=== PATIENT | male | born 1970 | race Caucasian/White ===

== ENCOUNTER 2022-03-18 17:24 | Inpatient (IN) | payer MEDICARE ==
[~2022-03-18] VITALS: Ht 178 cm; Wt 103.6 kg
[2022-03-18 18:08] LABS: PCO2 Arterial 46.5 mmHg (35-45); PO2 Arterial 60.2 mmHg (80-100); pH Blood Arterial 7.11 (7.35-7.45)
[2022-03-18 18:17] LABS: BASOPHILS ABSOLUTE AUTO 0.08 K/mm3 (0.00-0.23); BASOPHILS PERCENT AUTO 0 % (0-2); EOSINOPHILS ABSOLUTE AUTO 0.11 K/mm3 (0.00-0.68); EOSINOPHILS PERCENT AUTO 1 % (0-6); Hematocrit 47.6 % (37.0-53.0); Hemoglobin 15.1 g/dL (13.5-17.5); IMMATURE GRAN ABSOLUTE AUTO 0.37 K/mm3 (0.00-0.10); IMMATURE GRAN PERCENT AUTO 2 % (0-1); LYMPHOCYTES ABSOLUTE AUTO 2.81 K/mm3 (0.84-5.20); LYMPHOCYTES PERCENT AUTO 15 % (21-46); MONOCYTES ABSOLUTE AUTO 0.99 K/mm3 (0.16-1.47); MONOCYTES PERCENT AUTO 5 % (4-13); Mean Corpuscular HGB 30.3 pg (26.0-34.0); Mean Corpuscular HGB Conc 31.7 g/dL (31.5-36.5); Mean Corpuscular Volume 95 fL (80-100); Mean Platelet Volume 11.8 fL (9.1-12.4); NEUTROPHILS ABSOLUTE AUTO 14.24 K/mm3 (1.96-9.15); NEUTROPHILS PERCENT AUTO 77 % (41-73); NRBC ABSOLUTE 0.02 K/mm3 (0.00-0.02); NRBC Auto 0.1 /100 WBC (0.0-0.2); Platelet Count 209 K/mm3 (150-400); RDW Coefficient Variation 12.8 % (11.7-14.2); RDW Standard Deviation 44.1 fL (35.1-46.3); Red Blood Cell Count 4.99 M/mm3 (4.30-5.90)
[2022-03-18 18:33] LABS: International Normalized Ratio 1.22; Magnesium, Blood 2.6 mg/dL (1.6-2.4); Prothrombin Time Results 12.6 Sec (9.7-11.5)
[2022-03-18 18:47] LABS: Albumin, Blood 2.4 g/dL (3.4-5.0); Albumin/Globulin Ratio 0.8 (0.8-1.8); Bilirubin, Total 0.9 mg/dL (0.1-1.0); Bun/Creatinine Ratio 15.6 (12.0-20.0); Calcium, Blood 9.2 mg/dL (8.5-10.1); Creatinine, Blood 1.09 mg/dL (0.60-1.20); Phosphorus, Blood 4.8 mg/dL (2.5-4.9); Potassium, Blood 4.2 mmol/L (3.5-5.5); Total Protein, Blood 5.4 g/dL (6.4-8.2)
--- NOTE | 2022-03-18 19:11 | NUR ---
pt coded upon arrival to icu. exteded cpr also coded in ER at other hospital. notified his significant other and his son of his dire situation. We had return of circultion. will follow with family to update them. Gently tried to prepare them for possibly not surviving this event. 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 He also stated two year ago he was in the hospital for congestive heart failure. pt pps socre is 20%.
--- NOTE | 2022-03-18 19:15 | NUR ---
ASSUMED CARE OF PT @1900. PT INTUBATED AC VC 22/500/12/100%. DR SMITH, DR MANNING, AND RT BEDSIDE. BARNEY 300MCG/MIN, DOPAMINE 10MCG/KG/MIN, EPI 20MCG/MIN, SODIUM BICARB BOLUS, NACL 200MLS/HR. CL RIJ, IV 18GA RAC, IV 20GA RFA, IO R TIBIA. TEMP TURCIOS DRAINING TO GRAVITY.
--- NOTE | 2022-03-18 19:26 | NUR ---
Summary. Pt arrived to ICU at approximately 1730, during transfer from [facility] team pt lost pulses. Code blue called at approximately 1734. Code summary as follows: 1734 code called, cpr started, 1mg EPI 1737 rhythm check, no pulse, PEA 1738 2 AMPs Bicarb 1739 1mg EPI, calcium chloride 1740 rhythm check, no pulse, Vtach, two shock 1741 1 mg EPI 1742 300 mg Amiodarone 1743 rhythm check, PEA 1744 1 mg EPI 1745 1 AMP Bicarb 1746 rhythm check, PEA 1747 1 mg EPI 1748 rhythm check, ROSC, sinus rhythm in the 80s Post code summary: Epi drip started at 5 mcg/min titrated per Dr. Toney to maintain MAP >65 Dopamine drip started at 2.5 mcg/kg/min, titrated per Dr. Toney to maintain MAP >65 At approximately 1840, pt BP dropped and pt became bradycardic with rate dropping into 30s. 1 mg EPI and 2 AMPs bicarb given with good results. Neosynephrine started at 100 mcg/min at 1850, titrated to maintain BP per Dr. Toney. Dr Rubio at bedside, time study technician at bedside. Report given to oncroderick RN.
[2022-03-18 19:49] LABS: PCO2 Arterial 50.3 mmHg (35-45); PO2 Arterial 84.8 mmHg (80-100)
[2022-03-18 19:50] LABS: pH Blood Arterial 7.25 (7.35-7.45)
[2022-03-18 21:26] LABS: PCO2 Arterial 47.2 mmHg (35-45); PO2 Arterial 60.1 mmHg (80-100)
[2022-03-18 21:27] LABS: pH Blood Arterial 7.26 (7.35-7.45)
--- NOTE | 2022-03-18 21:35 | NUR ---
UPDATE CALLED DR SMITH REGARDING SPO2 READING HIGH 70'S AND LOW 80'S. RT DISCUSSED WITH LUIS ABOUT VENT SETTINGS. EVENTALLY ORDERS PROVIDED TO PARALIZE AND SEDATE PATIENT FOR VENT COMPLIENCE. SEE EMAR FOR ORDERS.
[2022-03-18 22:07] LABS: Albumin/Globulin Ratio 0.8 (0.8-1.8); Bilirubin, Total 1.2 mg/dL (0.1-1.0); Bun/Creatinine Ratio 19.3 (12.0-20.0); Creatinine, Blood 0.93 mg/dL (0.60-1.20); Globulin, Blood 2.5 g/dL (2.2-4.0); Potassium, Blood 2.5 mmol/L (3.5-5.5); Total Protein, Blood 4.5 g/dL (6.4-8.2)
[2022-03-18 22:12] LABS: U Amphetamine Screen DETECTED; U Barbituate Screen Not Detected; U Benzodiazapine Screen Not Detected; U Buprenorphine Screen Not Detected; U Cannabinoids Screen Not Detected; U Cocaine Screen Not Detected; U Methadone Screen Not Detected; U Methamphetamine Screen DETECTED; U Opiates Screen Not Detected; U Oxycodone Screen Not Detected; U Phencyclidine Screen Not Detected; U Propoxyphene Screen Not Detected
[2022-03-19 00:16] LABS: Influenza A, PCR NEGATIVE (NEGATIVE); Influenza B, PCR NEGATIVE (NEGATIVE); Resp Syncytial Virus, PCR NEGATIVE (NEGATIVE); SARS-Cov-2 (COVID-19) PCR, MMC NEGATIVE (NEGATIVE)
[2022-03-19 00:20] LABS: PCO2 Arterial 37.2 mmHg (35-45); PO2 Arterial 86.8 mmHg (80-100); pH Blood Arterial 7.34 (7.35-7.45)
--- NOTE | 2022-03-19 00:45 | NUR ---
UPDATE AFTER MOST RECENT ABG, OXYGENATION HAS IMPROVED AND SPO2 REFLECTS THIS. MARTHA AND VERSED NOW ON SB.
[2022-03-19 01:46] LABS: Glucose, Blood 1065 mg/dL (70-99)
[2022-03-19 02:01] LABS: Glucose, Blood 976 mg/dL (70-99)
[2022-03-19 02:01] LABS: Glucose, Blood 946 mg/dL (70-99)
--- NOTE | 2022-03-19 02:21 | NUR ---
UPDATE ATTEMPTED TO CALL DR SMITH SEVERAL TIMES REGARDING LAB RESULTS. CALLS MADE AT 2256, 2320, 2354, 0127. DR SMITH RETURNED CALLS AT 0218 WITH NEW ORDERS FOR BLOOD CULTURES AND AGREES WITH POTASSIUM REPLACEMENT BELOW. CALL MADE TO DR MANNING AT 225 REGARDING POTASSIUM AT 2.4, HE ORDERED ELETROLYTE PROTOCOL TO REPLACE POTASSIUM.
[2022-03-19 02:37] LABS: Glucose, Blood 920 mg/dL (70-99)
--- NOTE | 2022-03-19 03:00 | NUR ---
UPDATE PT TAKEN TO CT WITH RT, FOUR RN'S, AND A PCT. NO ACUTE EVENTS FOR THIS INTERATION.
[2022-03-19 03:55] LABS: PCO2 Arterial 37.3 mmHg (35-45); PO2 Arterial 138 mmHg (80-100); pH Blood Arterial 7.36 (7.35-7.45)
[2022-03-19 04:01] LABS: BASOPHILS ABSOLUTE AUTO 0.01 K/mm3 (0.00-0.23); BASOPHILS PERCENT AUTO 0 % (0-2); EOSINOPHILS ABSOLUTE AUTO 0.01 K/mm3 (0.00-0.68); EOSINOPHILS PERCENT AUTO 0 % (0-6); Hematocrit 39.6 % (37.0-53.0); Hemoglobin 13.5 g/dL (13.5-17.5); IMMATURE GRAN ABSOLUTE AUTO 0.05 K/mm3 (0.00-0.10); IMMATURE GRAN PERCENT AUTO 0 % (0-1); LYMPHOCYTES ABSOLUTE AUTO 0.64 K/mm3 (0.84-5.20); LYMPHOCYTES PERCENT AUTO 5 % (21-46); MONOCYTES ABSOLUTE AUTO 0.47 K/mm3 (0.16-1.47); MONOCYTES PERCENT AUTO 3 % (4-13); Mean Corpuscular HGB 30.1 pg (26.0-34.0); Mean Corpuscular HGB Conc 34.1 g/dL (31.5-36.5); Mean Platelet Volume 11.1 fL (9.1-12.4); NEUTROPHILS PERCENT AUTO 92 % (41-73); Platelet Count 171 K/mm3 (150-400); RDW Coefficient Variation 12.5 % (11.7-14.2); RDW Standard Deviation 40.6 fL (35.1-46.3); Red Blood Cell Count 4.48 M/mm3 (4.30-5.90); White Blood Cell Count 14.38 K/mm3 (4.00-11.30)
[2022-03-19 04:31] LABS: Albumin, Blood 1.8 g/dL (3.4-5.0); Albumin/Globulin Ratio 0.7 (0.8-1.8); Bilirubin, Total 0.9 mg/dL (0.1-1.0); Calcium, Blood 6.8 mg/dL (8.5-10.1); Creatinine, Blood 0.82 mg/dL (0.60-1.20); Globulin, Blood 2.7 g/dL (2.2-4.0); Potassium, Blood 2.7 mmol/L (3.5-5.5); Total Protein, Blood 4.5 g/dL (6.4-8.2)
[2022-03-19 04:38] LABS: Source, Urine Foley catheter
[2022-03-19 04:40] LABS: Bilirubin, Urine Neg (Neg); Blood, Urine 5+ (Neg); Glucose Qualitative, Urine 4+ (Neg); Ketones, Urine Neg (Neg); Leukocyte Esterase, Urine 1+ (Neg); Nitrite, Urine Neg (Neg); Protein, Urine Neg (Neg); Specific Gravity, Urine 1.005 (1.003-1.022); Urobilinogen, Urine NORM (Normal)
[2022-03-19 04:54] LABS: Appearance, Urine Hazy (Clear); Color, Urine Orange (P-Yellow)
[2022-03-19 04:56] LABS: Bacteria Mod /hpf; Red Blood Cells, Urine 25-50 /hpf (0-2); Squamous Epithelial Cells Rare /hpf (Few)
[2022-03-19 05:16] LABS: Mean Corpuscular Volume 88 fL (80-100)
[2022-03-19 06:01] LABS: Glucose, Blood 761 mg/dL (70-99)
--- NOTE | 2022-03-19 06:08 | NUR ---
SUMMARY: NEURO/PSYCH/MOBILITY: ON INITIAL ASSESSMENT PT HAD SPONTANEOUS EYE OPENING W/UPWARD GAZE. PUPILS FIXED AND DILATED. INTERNAL ROTATION OF UPPER EXTREMETIES W/STIMULI. PT WAS SEDATED W/MIDAZOLAM AND PARALYZED W/ROCURONIUM BRIEFLY DUE TO POOR SPO2 SATS AND VENTILATOR COMPLIANCE. PT DOES NOT WITHDRAW FROM NOXIOUS STIMULI AND DOES NOT HAVE ANY PURPOSFUL MOVEMENT. NO GAG, COUGH, SWALLOW, OR GRIMACE W/SUCTIONING AND ORAL CARE. TEMP INCREASED FROM 92.0 TO 94.6. PT'S PUPILS FIXED, DILATED, AND UNEQUAL. RESP: LUNG CUADRA CLEAR AND DIMINISHED THROUGHOUT. VENT SETTINGS AT END OF SHIFT: AC VC 22/500/14/80%. RR 22, SPO2 >92%. CARDIAC: BP/MAP SOFT THROUGHOUT SHIFT. ARTERIAL LINE IN R FEMORAL ARTERY, TITRATIONS TO KEEP MAP >65. BARNEY 300MCG/MIN, DOPAMINE 20MCG/KG/MIN, EPI 20MCG/MIN, DOBUTAMINE 20MCG/KG/MIN. HR 90-110'S. HEPARIN 15U/KG/HR, NACL 300MLS/HR. GI: OG TUBE IN PLACE AND CLAMPED. NO BM THIS SHIFT. ABDOMEN SOFT W/HYPOACTIVE BOWEL TONES. : TEMP TURCIOS IN PLACE. TURCIOS PT ARRIVED TO FACILITY WITH CHANGED OUT AND URINALYSIS SENT. DRAINING CLEAR YELLOW URINE TO GRAVITY. SOME SEDIMENT NOTED. SKIN: ASSESSMENT REMAINS UNCHANGED. IV ACCESS: CL RIJ PATENT AND INFUSING, 18G RAC PATENT AND INFUSING, 20 RFA PATENT AND INFUSING, 20GA LFA PATENT W/SALINE LOCK. INSULIN INFUSING @15U/HR
--- NOTE | 2022-03-19 06:10 | NUR ---
UPDATE CALLED DR TAVERAS REGARDING PE STUDY RESULTS. CALLED DR SMITH AT 0559 REGARDING IONIZED CA AND THAT RADIOLOGY HAS BEEN ATTEMPTING TO CALL HIM BUT HE HAS NOT ANSWERED. HE DID NOT ANSWER FOR THIS CALL EITHER. WILL ATTEMPT AGAIN SOON.
--- NOTE | 2022-03-19 06:35 | NUR ---
UPDATE CALLED DR SMITH AT 06[address] RESULTS READ TO HIM. INFORMED HIM REGARDING THIS AM IONIZED CA LAB. NEW ORDERS PROVIDED FOR ALBUMIN AND CALCIUM GLUCONATE.
[2022-03-19 07:27] LABS: Glucose, Blood 769 mg/dL (70-99)
--- NOTE | 2022-03-19 08:04 | NUR ---
ASSUMED CARE OF PT THIS AM PT REMAINS ON NO SEDATION AND UNRESPONSIVE AT THIS TIME. OCCASIONALLY WILL SPONT OPEN EYES HOWEVER FIXED AND UNEQUAL PUPILS. SCLERAL EDEMA AND FACIAL TREMOR NOTED. PT TEMP 95.2 THIS AM VIA CORE TEMP, WARM BLANKETS APPLIED. PT. DOES NOT RESPOND TO NOXIOUS STIMULI,NO COUGH OR GAG DURING THIS ASSESSMENT. PT. CURRENT VENT SETTINGS OF ACVC 22,TV 500, FIO2 65%, PEEP 14. PT RR CURRENTLY 22. PT. HR 90S. DOBUTAMIN, DOPAMINE, NEOSYNEPHRINE, AND EPI GTT INFUSING SEE FLOWSHEET. PT. HAS HEPARIN AND INSULIN GTT INFUSING WELL. PT. HAS OG CLAMPED, TURCIOS TEMP DRAING YELLOW URINE. ARTLINE AND CENTRAL ACCESS IN PLACE.
[2022-03-19 09:14] LABS: Glucose, Blood 669 mg/dL (70-99)
--- NOTE | 2022-03-19 10:02 | NUR ---
DR HODGES AT BEDSIDE TO EXAMINE PT AND UPDATE FAMILY. LEVOPHED GTT INITIATED AND DOPAMINE GTT TITRATED DOWN PER DR. PALACIOS.
--- NOTE | 2022-03-19 10:24 | NUR ---
Spiritual care visit conducted. Patient is lying in bed and minimally responsive. Family is bedside. 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 I provide therapeutic listening, life review opportunities and gentle assessment counselor. Family respond well and showed signs of being comforted. I will continue to remain available to family.
[2022-03-19 10:42] LABS: Glucose, Blood 623 mg/dL (70-99)
--- NOTE | 2022-03-19 11:12 | NUR ---
UPDATE PT. TEMP INCREASING SLOWLY, NOW UP TO 96.8. FAN PLACED AT BEDSIDE FOR GOAL TEMP OF 96.8 AT THIS TIME PER DR[address] HODGES. PT EYE OPENING AND FACIAL TREMOR BECOMING MORE FREQUENT AND SEVERE. EYES REMAIN FIXED AND NON RESPONSIVE. CONTINUES TO HAVE NO COUGH OR GAG. 4MG ATIVN GIVEN FOR INCREASED TREMOR ACTIVITY. PROPOFOL GTT ORDERED.
--- NOTE | 2022-03-19 11:25 | NUR ---
PT HR INCREASING, QRS NOTED TO BE WIDENING SEE EKG MEASURMENTS. 2GM MAG PUSH NOW PER DR. HODGES. PROPFOL GTT STARTED AT 25MCG/KG/MIN. PT TEMP CONTINUES TO INCREASE, ICE PACKS PLACED TO PT CORE.
[2022-03-19 11:59] LABS: PCO2 Arterial 36.9 mmHg (35-45); PO2 Arterial 66.9 mmHg (80-100); pH Blood Arterial 7.39 (7.35-7.45)
[2022-03-19 12:25] LABS: Bun/Creatinine Ratio 16.3 (12.0-20.0); Calcium, Blood 7.2 mg/dL (8.5-10.1); Creatinine, Blood 0.86 mg/dL (0.60-1.20); Magnesium, Blood 2.4 mg/dL (1.6-2.4); Potassium, Blood 3.9 mmol/L (3.5-5.5)
--- NOTE | 2022-03-19 17:56 | NUR ---
SHIFT SUMMMARY PT. REMAINS UNRESPONSIVE AND INTUBATED. PT DID GET STARTED ON PROPOFOL THIS SHIFT DUE TO INCREASED TREMORS AND EYE OPENING. PT. REMAINS ON MULTIPLE VASOPRESSORS, EPINEPHRINE, NEOSYNEPHRINE, LEVOPHED, AND DOBUTAMINE. TITRATED FOR MAP >65. PER DR. HODGES TITRATE NEOSYNEPHRINE DOWN FIRST IF PT WILL TOLERATE. ART LINE REMAINS IN PLACE TO RIGHT GROIN WITH SAFESET. INSULIN GTT INFUSING. PT. HEPARIN CONTINUES INFUSING WELL. PT FAMILY AT BEDSIDE T/O DAY. UPDATED FREQUENTLY T/O THE DAY. ORDER FOR REPEAT HEAD CT TOMORROW. ALL NEEDS MET AT THIS TIME. REPORT TO ONCOMING NURSE.
--- NOTE | 2022-03-19 20:56 | NUR ---
ASSUMED CARE AT 1900 PATIENT IS INTUBATED AND SEDATED ON PROPOFOL. RIGHT PUPIL SLIGHTLY LARGER THAN LEFT, NO RESPONSE. EXTREMITIES FLACCID. 02 SATS 99% ON VENT AC VC 22/500/10/60%, RR 22, NO SECRETIONS FROM ETT. NO GAG WHEN SUCTIONED. LS CLEAR TO DIMINISHED. BREATHING PATTERN IRREGULAR. HR SR 90-100, ART LINE IN PLACE, SITE WNL, MAINTAIN BP >65. LEVO 14 MCG/MIN, EPI 12 MCG/MIN, DOBUTAMINE 20 MCG/KG/MIN, BARNEY 100 MCG/MIN. PULSES PALPABLE IN ALL EXTREMITIES. NAIL BEDS PALE. TEMP TURCIOS PATENT AND DRAINING CLEAR YELLOW, SOME SEDIMENT IN TUBING. TEMP CURRENTLY 96.4. OG CLAMPED. ORAL CARE DONE AND PATIENT REPOSITIONED. FAMILY AT BEDSIDE. SEE SHIFT ASSESSMENT FOR MORE INFORMATION.
[2022-03-20 03:28] LABS: Hematocrit 34.1 % (37.0-53.0); Mean Corpuscular HGB 30.5 pg (26.0-34.0); Mean Corpuscular HGB Conc 35.2 g/dL (31.5-36.5); Mean Corpuscular Volume 87 fL (80-100); Mean Platelet Volume 11.6 fL (9.1-12.4); Platelet Count 165 K/mm3 (150-400); RDW Coefficient Variation 13.1 % (11.7-14.2); RDW Standard Deviation 40.5 fL (35.1-46.3); Red Blood Cell Count 3.94 M/mm3 (4.30-5.90); White Blood Cell Count 15.25 K/mm3 (4.00-11.30)
[2022-03-20 03:48] LABS: Magnesium, Blood 2.1 mg/dL (1.6-2.4)
[2022-03-20 03:56] LABS: Bun/Creatinine Ratio 14.8 (12.0-20.0); Calcium, Blood 7.2 mg/dL (8.5-10.1); Creatinine, Blood 0.81 mg/dL (0.60-1.20); Potassium, Blood 4.5 mmol/L (3.5-5.5)
[2022-03-20 04:21] LABS: Phosphorus, Blood 1.3 mg/dL (2.5-4.9)
--- NOTE | 2022-03-20 05:30 | NUR ---
SHIFT SUMMARY NEURO: PATIENT INTUBATED AND SEDATED ON PROPOFOL. PUPILS SLUGGISH, LEFT REMIANS SLIGHTLY SMALLER THAN RIGHT. PATIENT ATTEMPTS TO OPEN EYES WITH PAINFUL STIMULI. EXTREMITIES FLACCID. RESP: VENT AC VC 22/500/10/50%, RR 22, 02 SATS 100%. SCANT AMOUNT OF THICK RED SECRETIONS FROM ETT. BREATHING MORE REGULAR SINCE START OF SHIFT. CUFF LEAK TWICE THIS SHIFT RT TO ROOM AND LEAK FIXED, WILL MONITOR. CV: ART LINE IN RIGHT FEMORAL, PATENT. DRESSING CHANGED. MAINTAINING BP >65, ABLE TO TITRATE BARNEY AND DOBUTAMINE OFF THIS SHIFT WELL TITRATING LEVO DOWN TO 10 MCG/MIN AND EPI 4 MCG/MIN. HR SR AT 91. GI: OG REMAINS CLAMPED. BOWEL TONES HYPOACTIVE. : TURCIOS PATENT AND DRAINING YELLOW/SEDIMENT URINE, 1100 OUT THIS SHIFT. TEMP PROBE ON TURCIOS DOES NOT APPEAR TO BE WORKING ANYMORE. CENTRAL LINE DRESSING CHANGED, PATIENT GIVEN BEDBATH AND TOLERATED WELL. CALLED DR. HODGES THIS AM WITH PHOS RESULTS, ORDERS TO REPLACE SEE EMAR. CHANGED INSULIN COVERAGE TO Q6 MEDIUM SLIDING SCALE. UPDATED DR. HODGES ON IV MEDICATIONS INFUSING. FAMILY REMAINED AT BEDSIDE THROUGH THE NIGHT.
--- NOTE | 2022-03-20 08:00 | NUR ---
PT GIVEN SEDATION VACATION FOR OVER 30 MINUTES. DURING THAT TIME, PT REMAINED UNRESPONSIVE. PUPILS L 4MM R 6 MM-BOTH SLUGGISH. SCLERAL EDEMA NOTED L>R. NO CORNEAL REFLEX. PT NOT RESPONDING TO PAINFUL STIMULI. NO COUGH OR GAG REFLEX. PT IS NOT RESTRAINED NO MOVEMENT OF EXTREMITIES NOTED. AFTER 30 MINUTES, PROPOFOL RESUMED @ 40 MCG/KG/MIN. ECG SHOWS SR WITH RATE 90'S. RIGHT FEMORAL A-LINE ZEROED. MAP TRENDING >65 ON LEVOPHED @ 10 MCG/MIN AND EPINEPHRINE @ 2 MCG/MIN. HEPARIN DRIP INFUSING @ 13 UNITS/KG/HR. TEMP 98.5 PT JUST HAS A SHEET ON AND THE ROOM IS QUITEL COOL. GENERALIZED EDEMA NOTED. ETT 8.0/24 @ LIP. VENT: AC22-RR 22, TV500, PEEP 10, FIO2 50%. SATS>90%. LUNGS COARSE R>L. ETT SUCTION PRODUCTIVE OF MODERATE AMOUNT OF THICK, BROWN, BLOODY SPUTUM-SPECIMEN SENT FOR MICRO. ABDOMEN IS OBESE AND FIRM WITH HYPOACTIVE BT'S X 2. OGT CLAMPED. TURCIOS TO BSD WITH ADEQUATE AMOUNT OF YELLOW URINE-WITH SMALL AMOUNT OF SEDIMENT TO UROMETER. SKIN IS PALE AND OVERALL INTACT. PT HAS SCATTERED SCABS TO LOWER EXTREMITIES THAT WERE PRESENT ON ADMIT. PLAN FOR CT SCAN OF HEAD LATER THIS AM. PT MASHA AND MOTHER WINSOME UPDATED TO CURRENT STATUS AND PLAN OF CARE.
--- NOTE | 2022-03-20 09:35 | NUR ---
PT TRANSPORTED TO CT VIA BED WITH RT AND RN X 2 @ BEDSIDE. TOLERATED WELL. MAP TRENDING 90'S-EPINEPHRINE DRIP TITRATED DOWN TO 1 MCG/MIN.
--- NOTE | 2022-03-20 12:00 | NUR ---
PT GIVEN ADDITIONAL BREAK FROM SEDATION FOR APROXIMATELY [address] MCCANN IN TO EVALUATE PT AND SPEAK WITH FAMILY. PT PUPILS ARE NON-REACTIVE TO LIGHT. STILL NO COUGH, NO GAG, NO SWALLOW, OR CORNEAL REFLEX. PT RESPIRATIONS BECAME ASYNCHRONOUS WITH VENTILATOR AND SATS DROPPED TO 88%. LUNGS REMAIN COARSE AND DIMINISHED TO THE BASES. PROPOFOL DRIP RESUMED @ 40 MCG/KG/MIN. SBP UP TO THE 200'S. BOTH EPI AND LEVOPHED DRIPS ON STAND-BY. OGT REMAINS CLAMPED. TURCIOS TO BSD WITH ADEQUATE AMOUNT OF CLEAR, YELLOW URINE OUTPUT. CBG 222 COVERED PER SLIDING SCALE-SEE EMAR. DR. MCCANN, MORE BARTON, RANJIT LEE, AND THIS RN MEDT WITH PT MASHA, MOTHER WINSOME, AND BROTHER AWA. 3 OF PT ADULT CHILDREN ALSO AT BEDSIDE TO DISCUSS PROGNOSIS AND PLAN OF CARE. PT , MOTHER, AND BROTHER STATE "HE WOULD NOT WANT ANY OF THIS." PT STATED THAT PT SHOULD NOT BE RESCUSCITATED SHOULD HIS HEART STOP AGAIN. HOWEVER, PT CHILDREN WISH FOR PT TO REMAIN FULL CODE. PT AGREED TO KEEP PT FULL CODE FOR NOW. PT REQUESTS THAT RN CONTACT HER IMMEDIATELY IF PT CONDITION DECLINES FURTHER. CONFIRMED MASHA'S CONTACT INFO. REQUESTED THAT IF PT CONDITION BEGINS TO DECLINE FURTHER
--- NOTE | 2022-03-20 12:30 | NUR ---
VENT RATE DECREASED TO [address] MCCANN ORDERS. MAP TRENDING >65 OFF OF PRESSORS CURRENTLY.
--- NOTE | 2022-03-20 13:30 | NUR ---
THIS RN AND DHARA PACHECO FROM [facility] SPOKE WITH PT 3 ADULT CHILDREN REGARDING FAMILY DYNAMICS WITH THEIR FATHER AND STEP MOTHER. ACCORDING TO THE CHILDREN, PT HAD REACHED OUT TO THEM NOT LONG BEFORE HE ARRESTED AND STATED THAT HE HAD ASKED HIS FOR A DIVORCE. WHEN EMS ARRIVED TO PT RESIDENCE , PT SPOUSE WAS ASKED SEVERAL TIMES IF PT WAS "USING" AND SHE HAD DECLINED DESPITE KNOWING THAT IT COULD BE A MATTER OF LIFE AND . PT CHILDREN VOICING CONCERN THAT PT THEIR STEPMOTHER IS NOT COMPETENT TO MAKE DECISIONS REGARDING PLAN OF CARE/END OF LIFE ISSUES. AN ETHICS COMMITEE CONSULT HAS BEEN PLACE. PT CHILDREN REQUESTED TO BE INVOLVED IN CONVERSATIONS WITH MD REGARDING PLAN OF CARE.
--- NOTE | 2022-03-20 14:13 | NUR ---
Spiritual care visit conducted. Pt is lying in bed and minimally responsive. Pt's sons and dtr are bedside. They immediately express their concerns about pt's spouse being a good actor as a medical decision maker for the pt. They talk about her Meth abuse and her inability to make a decision on behalf of the best interest of the pt. Then then talk about the unity of the 5 siblings and their deep love for him. They explain that they would choose to have the medical team provide aggressive care for him unless there were clear signs that it is note beneficial or futile, then they would withdraw care. They ask that prayer would be provided for him and then they told many stories about patient that show him to be a man with flaws but also with a huge heart, love and sense of humor. I normalize their frustration and fears, reinforce helpful attitudes and provide therapeutic listening, gentle dormitory counselor and prayer. Family responded well and showed signs of reduced stress and of being comforted.
[2022-03-20 14:43] LABS: PCO2 Arterial 32.1 mmHg (35-45); PO2 Arterial 188 mmHg (80-100); pH Blood Arterial 7.44 (7.35-7.45)
--- NOTE | 2022-03-20 14:43 | NUR ---
Family meeting conducted with cash office worker. 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 Mother and accepting or porgnosis. His children are struggling and still feel cruz may make a recovery. Pt high risk for seizures prognoisis less than 10 percent. Kaylee relayed history of him stopping his medications. and refusing care the past few months.
--- NOTE | 2022-03-20 15:09 | NUR ---
Ethics consult order received and processed. Medical history, clinical trajectory, and social matrix reviewed. Conflicting opinions regarding the plan of care have been documented. These are reported to be largely between the children of the principal, and the patients spouse. According to the providers dictation, Mrs Han comprehends the severity of the principals condition, the improbability of his recovery, and the non-beneficiality of continuing to treat him aggressively. The broader family constellation, excluding the children, have reached a consensus that the principal would not want to proceed with disproportionate measures of care. Under these conditions, the spouse has the legal right, and bears the moral burden of directing the care in a manner that comports with the best approximation of the patients wishes that can be surmised. If de-escelation is clinically most suitable, and the supports a discontinuation of aggressive interventions, then this should be pursued despite the unfortunate disagreement that exists among the other family members. As a cautionary note, it should be mentioned, that while making decisions as a proxy, the must be of sober mind and judgement. In other words she cannot engage in treatment planning when actively under the influence of a narcotic or impairing drug, licit or otherwise. Thank you for this consult. Please let me know if you have any questions or concerns, or if an area of interest has been left unaddressed in my assessment. Jose L Mariscal, PhD, CHRISTINA
--- NOTE | 2022-03-20 16:00 | NUR ---
PT REMAINS UNRESPONSIVE. NO CORNEAL REFLEX, NO COUGH, NO GAG, AND NO SWALLOW. STILL NO PUPILLARY RESPONSE TO LIGHT STIMULUS. PT DOES NOT RESPOND TO PAINFUL STIMULI, NOR DOES HE MOVE HIS EXTREMITIES. ECG CONTINUES SR WITH RATE 90'S. MAP TRENDING 75-80'S WITH NO PRESSOR SUPPORT.VENT: AC 14, RR 14-18. PT MAINTAINS SATS>90% ON FIO2 40% PT AND MOTHER AT BEDSIDE. UPDATE GIVEN.
--- NOTE | 2022-03-20 18:00 | NUR ---
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 DESPITE THIS, PT FAMILY ASKING THAT DR. MCCANN BE CONTACTED TO REQUEST A NEUROSURGICAL CONSULTATION. RANJIT TO UPDATE DR. MCCANN.
[2022-03-20 20:05] LABS: Vancomycin, Trough 14.9 ug/mL (5.0-10.0)
--- NOTE | 2022-03-20 21:18 | NUR ---
ASSUMED CARE AT 1900 NEURO: PATIENT IS INTUBATED AND SEDATED ON PROPOFOL. PUPILS UNEQUAL AND UNREACTIVE. EXTREMITIES FLACCID. RESP: AC VC 14/500/8/50% ON VENT, 02 SATS 94%, RR 15. MODERATE AMOUNT OF SECRETIONS SUCTIONED FROM ETT, THICK RED/BARAJAS. LS CLEAR TO DIMINISHED. PEEP DECREASED FROM 10 TO 8 BY RT. LARGE AMOUNT OF ORAL SECRETIONS CV: SR 80s. ART LINE IN PLACE AND PATENT, MAINTAINING BP >65. BP STARTED TO DECREASE AND LEVOPHED RESTARTED, CURRENTLY ON 3 MCG/MIN. DOPPLER PULSES IN BLE. SOME EDEMA IN UPPER EXTREMITIES, ELEVATED ON PILLOWS. GI: BOWEL TONES HYPOACTIVE T/O, PATIENT HAD SMALL BM AT START OF SHIFT. OG CLAMPED. : TEMP TURCIOS PATENT AND DRAINING TO GRAVITY. YELLOW WITH SOME SEDIMENT. SKIN: SCABS TO LOWER EXTREMITIES. BED BATH DONE, LINEN CHANGED. FAMILY AT BEDSIDE, EDUCATION PROVIDED ON CURRENT TREATMENTS, MEDICATIONS, AND VENTILATOR. SEE SHIFT ASSESSMENT FOR MORE INFORMATION.
--- NOTE | 2022-03-21 00:24 | NUR ---
FAMILY LEFT PATIENTS BEDSIDE AND WITHOUT STIMULI PATIENTS BP CONTINUED TO DECREASE, LEVOPHED INCREASED TO MAINTAIN BP >65. SLIGHT ABNORMAL FLEXION OF EXTREMITIES WITH STIMULATION. NO PURPOSEFUL MOVEMENT, PUPILS REMAIN UNEQUAL AND UNREACTIVE. FAMILY CURRENTLY AT BEDSIDE.
[2022-03-21 03:45] LABS: BASOPHILS ABSOLUTE AUTO 0.05 K/mm3 (0.00-0.23); BASOPHILS PERCENT AUTO 0 % (0-2); EOSINOPHILS PERCENT AUTO 2 % (0-6); Hematocrit 33.5 % (37.0-53.0); Hemoglobin 11.3 g/dL (13.5-17.5); IMMATURE GRAN ABSOLUTE AUTO 0.11 K/mm3 (0.00-0.10); IMMATURE GRAN PERCENT AUTO 1 % (0-1); LYMPHOCYTES ABSOLUTE AUTO 2.37 K/mm3 (0.84-5.20); LYMPHOCYTES PERCENT AUTO 17 % (21-46); MONOCYTES ABSOLUTE AUTO 0.62 K/mm3 (0.16-1.47); MONOCYTES PERCENT AUTO 5 % (4-13); Mean Corpuscular HGB 30.4 pg (26.0-34.0); Mean Corpuscular HGB Conc 33.7 g/dL (31.5-36.5); Mean Corpuscular Volume 90 fL (80-100); Mean Platelet Volume 12.1 fL (9.1-12.4); NEUTROPHILS ABSOLUTE AUTO 10.23 K/mm3 (1.96-9.15); NEUTROPHILS PERCENT AUTO 75 % (41-73); Platelet Count 138 K/mm3 (150-400); RDW Coefficient Variation 13.5 % (11.7-14.2); RDW Standard Deviation 44.7 fL (35.1-46.3); Red Blood Cell Count 3.72 M/mm3 (4.30-5.90); White Blood Cell Count 13.68 K/mm3 (4.00-11.30)
[2022-03-21 04:21] LABS: Albumin, Blood 2.1 g/dL (3.4-5.0); Anion Gap 4 mmol/L (6-16); Blood Urea Nitrogen 16 mg/dL (8-24); Bun/Creatinine Ratio 18.4 (12.0-20.0); CO2, Blood 23 mmol/L (21-32); Calcium, Blood 7.4 mg/dL (8.5-10.1); Chloride, Blood 118 mmol/L (98-108); Creatinine, Blood 0.87 mg/dL (0.60-1.20); Glomerular Filtration Rate 105 (60-); Glucose, Blood 179 mg/dL (70-99); Potassium, Blood 4.3 mmol/L (3.5-5.5); Sodium, Blood 145 mmol/L (136-145)
--- NOTE | 2022-03-21 06:02 | NUR ---
SHIFT SUMMARY PATIENT REMAINS INTUBATED AND SEDATED ON PROPOFOL. SOME ABNORMAL FLEXION AND MOVEMENT AT TIMES, NO PURPOSEFUL MOVEMENT. PUPILS REMAIN UNREACTIVE. 02 SATS 99% ON AC VC 14/500/8/40%, RR 14. RT TO ROOM TO POSITION TUBE TO 25 AT THE TEETH. HR SR 60s, BP LABILE SYSTOLIC 70s-170s, TITRATING LEVO NEEDED. TURCIOS PATENT AND DRAINING TO GRAVITY. OG REMAINS CLAMPED. PATIENT HAD SMALL BM THIS SHIFT. FAMILY AT BEDSIDE THROUGH THE NIGHT.
--- NOTE | 2022-03-21 08:00 | NUR ---
PT GIVEN SEDATION VACATION X 30 MINUTES. PT REMAINS UNRESPONSIVE TO PAINFUL STIMULI. NO MOVEMENT OF EXTREMITIES. PUPILS REMAIN NON-REACTIVE TO LIGHT. SCLERAL EDEMA CONTINUES. NO CORNEAL, GAG, COUGH, OR SWALLOW REFLEX. PROPOFOL RESUMED @ 40 MCG/KG/MIN. ECG SHOWS SR WITH RATE 60'S. MAP TRENDING 70'S WITH LEVOPHED @ 3 MCG/MIN. GENERALIZED EDEMA NOTED. LUNGS COARSE TO UPPER LOBES AND DIMINISHED TO BASES. VENT:AC 14, RR 14, TV 500, PEEP 10, FIO2 40%-SATS>90% NO ETT SECRETIONS THIS AM. OGT REMAINS CLAMPED. TURCIOS TO BSD WITH ADEQUATE AMOUNT OF CLEAR, YELLOW URINE TO BSD. LOWER EXTREMITIES CONTINUE WITH SCATTERED SCABS IN VARIOUS STAGES OF HEALING. ALL SCABS PREET. PT SPOUSE MASHA UPDATED TO CURRENT STATUS AND PLAN OF CARE. PT FAMILY REQUESTING CONSULT FROM [facility] NEUROLOGY/NEUROSURGERY. DR. RAMAN IN TO SEE PT. FULL UPDATE GIVEN. DR. RAMAN SPOKE WITH PT FAMILY.
--- NOTE | 2022-03-21 08:53 | NUR ---
DR. MCCANN IN TO SEE PT. UPDATE GIVEN. PROPOFOL DRIP OFF PER DR. MCCANN ORDER. PLAN TO CONSULT ROSSY AND AAMIR FOR NEURO-FILMS PUSHED TO THOSE FACILITIES. ALSO, WILL ATTEMPT TO CONTACT DR. GRIFFITHS TO SEE IF HE IS AVAILABLE FOR CONSULTATION.
--- NOTE | 2022-03-21 10:00 | NUR ---
PROPOFOL DRIP HAS REMAINED OFF SINCE 852 AND NO CHANGE IN NEURO STATUS. PT INCONTINENT OF LARGE, BROWN, FORMED STOOL. PARITIAL BATH AND LINEN CHANGE COMPLETED. SBP 170'S-LEVOPHED DRIP OFF.
--- NOTE | 2022-03-21 10:45 | NUR ---
MAP TRENDING 40'S. LEVOPHED DRIP TITRATED UP TO 20 MCG/MIN TO KEEP MAP>65. BP /MAP VERY LABILE. SBP THEN UP TO 220 AND MAP 120'S. ATTEMPTING TO TITRATE LEVOPHED TO KEEP MAP >65.
--- NOTE | 2022-03-21 12:30 | NUR ---
NO ACUTE NEURO CHANGES. BP REMAINS LABILE. DR. MCCANN CONSULTED WITH NEURO FROM [facility] AND [facility]-BOTH CONCUR WITH DR. MCCANN AND RADIOLOGIST IMPRESSION OT CT SCAN RESULTS. PLAN TO MEET WITH FAMILY, DR. RAMAN, PALLIATIVE CARE TO DELIVER THE NEWS.
--- NOTE | 2022-03-21 13:00 | NUR ---
AFTER FAMILY MEETING WITH PALLIATIVE CARE, DR. RAMAN, AND THIS RN-PT MADE DNR STATUS. BRAIN TESTING ORDERED BY DR. MCCANN.
--- NOTE | 2022-03-21 13:02 | NUR ---
Team met with family for care conference and status update. Dr. 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 Family remain hopeful for a "miracle", do not appear to grasp the irreversibility of brain herniation and have further discussed a follow up CT tomorrow. However, they do now agree to change pt's code status to DNR, as they seem to understand pt would not survive a code. Dr. Kang gently explained the pt will not be transferred to a higher level of care as the consulting neurologist has reviewed the case and states no further options are available for this patient, who now appears to have suffered brain . Family asks about the term "brain ", stating they do not wish to move to comfort care for him unless he is "brain ". Beside TAMMIE De Anda states there is a protocol to determine this, and they are in agreement to do that testing. Received v/o from Dr. Kang for DNR, and entered the change. Palliative care will remain available.
[2022-03-21 13:25] LABS: PCO2 Arterial 38.9 mmHg (35-45); PO2 Arterial 80.4 mmHg (80-100); pH Blood Arterial 7.37 (7.35-7.45)
--- NOTE | 2022-03-21 13:42 | NUR ---
SBP 210'S AND MAP 130'S-LEVOPHED DRIP ON SB-BRAIN TESTING HAS BEEN INITIATED.
[2022-03-21 13:57] LABS: PCO2 Arterial 65.2 mmHg (35-45); PO2 Arterial 51.8 mmHg (80-100)
[2022-03-21 13:59] LABS: pH Blood Arterial 7.19 (7.35-7.45)
--- NOTE | 2022-03-21 14:02 | NUR ---
BRAIN CONFIRMED. DR. MCCANN, JARRETT KRAMER FROM PALLIATIVE CARE MET WITH FAMILY AND DISCUSSED THE RESULTS.
--- NOTE | 2022-03-21 15:31 | NUR ---
APNEA TEST TO BE REPEATED PT NOT NORMOTHERMIC AT THE TIME OF THE PREVIOUS TEST. ESOPHAGEAL TEMP PROBE AND BEAR HUGGER PLACED. WILL REPEAT APNEA TEST ONCE TEMP 96.8-THIS IS PER [facility] BRAIN CRITERIA/PROTOCOL.
--- NOTE | 2022-03-21 15:51 | NUR ---
"Brain test" performed at family's request. Pt declared at 1402 today. There is no further testing that needs to be done, as the testing is considered definitive. Pt's youngest son is being brought to see pt one last time prior to 1700 removal of life support. Family will be at bedside when life support removed.
[2022-03-21 16:43] LABS: PCO2 Arterial 38.1 mmHg (35-45); PO2 Arterial 224 mmHg (80-100); pH Blood Arterial 7.38 (7.35-7.45)
[2022-03-21 16:50] LABS: PCO2 Arterial 49.4 mmHg (35-45); PO2 Arterial 39.3 mmHg (80-100)
--- NOTE | 2022-03-21 17:00 | NUR ---
APNEA TEST INCONCLUSIVE TEST ABORTED AFTER 3 MINUTES-SATS 69%, HR 50'S, MAP<60 AND NO RESPIRATORY EFFORT. PCO2 CRITERIA NOT MET. DISCUSSED WITH FAMILY AND CT ANGIO ORDERED.
--- NOTE | 2022-03-21 18:00 | NUR ---
PT TRANSPORTED TO CTA OF HEAD WITH RT AND RN AT BEDSIDE. PT TOLERATED WELL. SUMMER, BANKING SUPERVISOR TO CONTACT RADIOLOGIST RECORDS MANAGEMENT DIRECTOR TO INTERPRET CTA RESULTS.
--- NOTE | 2022-03-21 18:36 | NUR ---
Brain test innacurate due to required body temp. Retried 2nd time, unable to complete. Family are now asking for CTA to determine blood supply to brain. Pt to go for scan shortly. They remain adamant this pt would not like to be cremated. The has chosen [facility] [employer] Super[employer], as they did conform today they will work out a payment plan with families.
--- NOTE | 2022-03-21 19:00 | NUR ---
THIS RN AND JARRETT FROM PALLIATIVE CARE READ THE CTA REPORT TO FAMILY AND DISCUSSED OPTIONS. AFTER CAREFUL CONSIDERATION, IT WAS DECIDED TO CHANGE PT TO COMFORT CARE. DR. MCCANN UPDATED AND ORDERS FOR COMFORT CARE PLACED.
--- NOTE | 2022-03-21 19:17 | NUR ---
Met with family again after CTA, reviewed results, and family have discussed together, they have elected comfort care. Dr. Blunt was contacted, gave verbal order for comfort care. Pt will be liberated from the ventilator this evening.
--- NOTE | 2022-03-21 19:37 | NUR ---
PT MED WITH ATROPINE 3 DROPS VIA ETT, MORPHINE 5 MG IVP, AND ATIVAN 1 MG IVP, THEN EXTUBATED TO COMFORT CARE-[facility] AT BEDSIDE.
--- NOTE | 2022-03-21 19:57 | NUR ---
ASSUMED CARE OF PT @190 FROM SARAH CHO. SARAH CHO AND PALLIATIVE CARE CONSULTED W/FAMILY RE: CTA RESULTS. FAMILY DECIDES TO MAKE PT COMFORT CARE. SARAH CHO ADMINISTERED ATIVAN, MORPHINE, AND ATROPINE (PT) @193. FAMILY BEDSIDE W/PALLIATIVE CARE AND RT FOR EXTUBATION. TOD PRONOUNCED @1949.
== END 2022-03-21 19:50 | DRG 308 ==
LOC: ICUE 17:24
PROVIDERS: Internal Medicine Critical Care Medicine; ADMIT Internal Medicine Cardiovascular Disease
PROC: 02HV33Z Insertion of Infusion Device into Superior Vena Cava, Percutaneous Approach (ICD-10-PCS; principal; 2022-03-18)
PROC: 04HY32Z Insertion of Monitoring Device into Lower Artery, Percutaneous Approach (ICD-10-PCS; 2022-03-18)
PROC: 5A12012 Performance of Cardiac Output, Single, Manual (ICD-10-PCS; 2022-03-18)
PROC: 5A1945Z Respiratory Ventilation, 24-96 Consecutive Hours (ICD-10-PCS; 2022-03-18)
PROC: 0BH17EZ Insertion of Endotracheal Airway into Trachea, Via Natural or Artificial Opening (ICD-10-PCS; 2022-03-18)
PROC: 3E033XZ Introduction of Vasopressor into Peripheral Vein, Percutaneous Approach (ICD-10-PCS; 2022-03-19)
DX: I49.01 Ventricular fibrillation (principal); G93.5 Compression of brain; J18.9 Pneumonia, unspecified organism; J96.01 Acute respiratory failure with hypoxia; J96.02 Acute respiratory failure with hypercapnia; G93.6 Cerebral edema; G93.1 Anoxic brain damage, not elsewhere classified; E87.20 Acidosis, unspecified; F15.20 Other stimulant dependence, uncomplicated; I50.22 Chronic systolic (congestive) heart failure; G91.9 Hydrocephalus, unspecified; E87.0 Hyperosmolality and hypernatremia; I42.7 Cardiomyopathy due to drug and external agent; I46.2 Cardiac arrest due to underlying cardiac condition; Z51.5 Encounter for palliative care; Z66 Do not resuscitate; R57.0 Cardiogenic shock; E11.9 Type 2 diabetes mellitus without complications; R79.1 Abnormal coagulation profile; Z20.822 Contact with and (suspected) exposure to COVID-19; B96.20 Unspecified Escherichia coli [E. coli] as the cause of diseases classified elsewhere; B95.2 Enterococcus as the cause of diseases classified elsewhere; B96.89 Other specified bacterial agents as the cause of diseases classified elsewhere
CPT/HCPCS: 0241U; 36415; 36600; 36620; 70450; 70496; 71045; 71260; 80048; 80053; 80069; 80202; 81001; 82330; 82803; 82947; 83605; 83735; 83880; 84100; 84145; 84484; 85025; 85027; 85379; 85520; 85610; 85730; 86850; 86900; 86901; 87040; 87070; 87077; 87086; 87186; 87205; 93005; 93010; 93308; 93321; 94002; 94003; A9270; C9113; J0171; J0282; J0461; J0610; J1250; J1265; J1642; J1644; J1815; J2060; J2250; J2270; J2370; J2543; J2704; J3370; J3475; J3480; J7030; J7040; J7050; J7060; J7070; P9047; Q9967